=== PATIENT | male | born 1970 | race Hispanic/Latino ===

== ENCOUNTER 2017-09-24 14:55 | Inpatient (IN) | payer OTHER ==
[~2017-09-24] VITALS: Ht 175.3 cm; Wt 128.5 kg
[2017-09-24] MEDS ORDERED: ONDANSETRON HCL 4 MG/2 ML VIAL ONE (15:23)
[2017-09-24] MEDS ORDERED: MORPHINE SULFATE 4 MG/1ML SYG ONE (15:23)
[2017-09-24 15:30] LABS: APPEARANCE,URINE Clear (CLEAR); BILIRUBIN,URINE Negative (NEGATIVE); COLOR,URINE Yellow (YELLOW); GLUCOSE, URINE (UA) Negative (NEGATIVE); KETONES,URINE Negative (NEGATIVE); LEUKOCYTE ESTERASE ,URINE Negative (NEGATIVE); NITRATE,URINE Negative (NEGATIVE); OCCULT BLOOD,URINE Trace (NEGATIVE); PROTEIN,URINE Negative (NEGATIVE)
[2017-09-24 15:33] LABS: BASOPHILS % (AUTO) 0.3 % (0.0-5.0); EOSINOPHILS % (AUTO) 0.4 % (0.0-8.0); HEMATOCRIT 49.8 % (42-54); LYMPHOCYTES % (AUTO) 12.6 % (21.0-51.0); MEAN CORPUSCULAR HEMOGLOBIN 30.8 pg (27.0-33.0); MEAN CORPUSCULAR HGB CONC 34.7 g/dL (32.0-36.0); MEAN CORPUSCULAR VOLUME 88.9 fL (79-99); MONOCYTES % (AUTO) 6.5 % (3.0-13.0); NEUTROPHILS % (AUTO) 80.2 % (40.0-77.0); PLATELET COUNT (AUTO) 193 K/uL (130-400); RED CELL DISTRIBUTION WIDTH 13.3 % (11.0-15.5); WHITE BLOOD COUNT (AUTO) 14.2 K/uL (4.8-10.8)
[2017-09-24 15:44] LABS: CREATININE 1.1 mg/dL (0.5-1.5); POTASSIUM 3.5 mmol/L (3.5-5.1)
[2017-09-24 15:45] LABS: BACTERIA,URINE None Seen /HPF (None Seen); RBC,URINE 0-1 /HPF (0-1); WBC,URINE None Seen /HPF (0-1)
[2017-09-24 15:46] LABS: SQUAMOUS EPITHELIAL CELL,UR Rare /HPF (0-2)
[2017-09-24 15:48] LABS: ALBUMIN 4.2 g/dL (3.5-5.0); BILIRUBIN,TOTAL 0.8 mg/dL (0.2-1.0); TOTAL PROTEIN, SERUM 8.5 g/dL (6.0-8.3)
[2017-09-24] MEDS ORDERED: IOPAMIDOL-370 75 ML VIAL IV ONE (16:17)
[2017-09-24] MEDS ORDERED: ACETAMINOPHEN EXTRA STRENGTH 500 MG TABLET ONE (17:09)
[2017-09-24] MEDS ORDERED: LEVOFLOXACIN 750 MG/D5W 150 ML 150 ML ONE (17:10)
[2017-09-24] MEDS ORDERED: METRONIDAZOLE 500MG/100ML BAG 100 ML ONE (18:34)
[2017-09-24 19:40] VITALS: BP 136/85
[2017-09-24] MEDS ORDERED: ONDANSETRON HCL MDV 20ML 2 MG/ML VIAL IVP PRN (22:00)
[2017-09-24] MEDS ORDERED: MORPHINE SULFATE 4 MG/1ML SYG IVP PRN (22:00)
[2017-09-24 23:00] VITALS: BP 129/75
[2017-09-25] VITALS (7 sets, daily range): BP systolic 113–126; BP diastolic 63–78
[2017-09-25] MEDS ORDERED: KETOROLAC TROMETHAMINE 30MG/ML IV PRN
[2017-09-25] MEDS: LACTATED RINGERS 1000ML 1,000 ML IV SCH ×4 (00:03→20:43)
[2017-09-25] MEDS: METRONIDAZOLE 500MG/100ML BAG 100 ML IVPB SCH ×3 (02:15→18:00)
[2017-09-25 04:00] LABS: BASOPHILS % (AUTO) 0.3 % (0.0-5.0); EOSINOPHILS % (AUTO) 0.3 % (0.0-8.0); HEMATOCRIT 41.6 % (42-54); LYMPHOCYTES % (AUTO) 14.5 % (21.0-51.0); MEAN CORPUSCULAR HEMOGLOBIN 31.2 pg (27.0-33.0); MEAN CORPUSCULAR HGB CONC 35.3 g/dL (32.0-36.0); MEAN CORPUSCULAR VOLUME 88.2 fL (79-99); MONOCYTES % (AUTO) 7.7 % (3.0-13.0); NEUTROPHILS % (AUTO) 77.2 % (40.0-77.0); NUCLEATED RED BLOOD CELLS 0.1 % (0.0-0.19); PLATELET COUNT (AUTO) 182 K/uL (130-400); RED BLOOD CELL COUNT(AUTO) 4.71 MIL/uL (4.50-6.20); RED CELL DISTRIBUTION WIDTH 13.1 % (11.0-15.5); WHITE BLOOD COUNT (AUTO) 11.5 K/uL (4.8-10.8)
[2017-09-25 04:04] LABS: CREATININE 1.3 mg/dL (0.5-1.5); POTASSIUM 3.4 mmol/L (3.5-5.1)
[2017-09-25] MEDS: FAMOTIDINE/PF 20 MG/2 ML VIAL IV SCH ×2 (10:02→20:41)
[2017-09-25] MEDS ORDERED: POTASSIUM CHLORIDE 20 MEQ/100 ML BAG IV SCH (15:00)
[2017-09-25] MEDS ORDERED: POTASSIUM CHLORIDE 20MEQ/100ML 100 ML IV SCH (15:15)
[2017-09-25] MEDS ORDERED: LEVOFLOXACIN 500 MG/D5W 100 ML 100 ML IV SCH (17:00)
[2017-09-25] MEDS ORDERED: LIDOCAINE HCL-MPF 1% 2ML VIAL ONE (18:19)
[2017-09-26] MEDS: METRONIDAZOLE 500MG/100ML BAG 100 ML IVPB SCH ×2 (02:03→06:00)
[2017-09-26 04:00] VITALS: BP 100/66
[2017-09-26] MEDS: LACTATED RINGERS 1000ML 1,000 ML IV SCH ×3 (04:21→20:58)
[2017-09-26 07:56] VITALS: BP 109/65
[2017-09-26] MEDS: FAMOTIDINE/PF 20 MG/2 ML VIAL IV SCH ×2 (08:46→20:56)
[2017-09-26 11:49] VITALS: BP 111/70
[2017-09-26 12:10] LABS: HEMATOCRIT 42.9 % (42-54); MEAN CORPUSCULAR HEMOGLOBIN 30.8 pg (27.0-33.0); MEAN CORPUSCULAR HGB CONC 34.6 g/dL (32.0-36.0); PLATELET COUNT (AUTO) 172 K/uL (130-400); RED BLOOD CELL COUNT(AUTO) 4.83 MIL/uL (4.50-6.20); RED CELL DISTRIBUTION WIDTH 13.2 % (11.0-15.5); WHITE BLOOD COUNT (AUTO) 6.5 K/uL (4.8-10.8)
[2017-09-26 12:19] LABS: CREATININE 1.2 mg/dL (0.5-1.5); POTASSIUM 3.8 mmol/L (3.5-5.1)
[2017-09-26 16:00] VITALS: BP 127/76
[2017-09-26] MEDS ORDERED: LEVOFLOXACIN 500 MG/D5W 100 ML 100 ML IV SCH (17:30)
[2017-09-26 20:00] VITALS: BP 114/67
[2017-09-26] MEDS: METRONIDAZOLE 500 MG TABLET PO SCH (20:56)
[2017-09-27] VITALS: BP 114/68
[2017-09-27 04:00] VITALS: BP 106/70
[2017-09-27] MEDS: LACTATED RINGERS 1000ML 1,000 ML IV SCH (06:30)
[2017-09-27 08:00] VITALS: BP 128/94
[2017-09-27] MEDS ORDERED: LEVOFLOXACIN 500 MG TABLET PO SCH (09:00)
[2017-09-27] MEDS: METRONIDAZOLE 500 MG TABLET PO SCH (09:04)
[2017-09-27] MEDS: FAMOTIDINE/PF 20 MG/2 ML VIAL IV SCH (09:05)
[2017-09-27] MEDS ORDERED: METR500T PO (10:06)
[2017-09-27] MEDS ORDERED: LEVO500T2 PO (10:06)
== END 2017-09-27 11:40 | disposition home or self-care (01) | DRG 392 ==
LOC: EDH 14:55 → OBSVTOIN 17:00 → EDHIP 17:00 → 3BH 19:28
PROVIDERS: ADMIT Family Medicine; ATTEND Family Medicine
DX: K57.20 Diverticulitis of large intestine with perforation and abscess without bleeding (principal); K76.0 Fatty (change of) liver, not elsewhere classified; E66.01 Morbid (severe) obesity due to excess calories; Z68.41 Body mass index [BMI] 40.0-44.9, adult; E87.6 Hypokalemia
CPT/HCPCS: 36415; 74177; 80048; 80053; 81001; 83690; 85025; 85027; J1956; J2270; J2405; J3480; J3490; J7120; Q9967

== ENCOUNTER 2017-10-11 23:19 | Emergency (ER) | payer OTHER ==
[~2017-10-11 23:19] MED LIST: LEVO500T2 PO; METR500T PO
[2017-10-12] MEDS ORDERED: ACETAMINOPHEN EXTRA STRENGTH 500 MG TABLET ONE (00:33)
[2017-10-12 01:15] LABS: BASOPHILS % (AUTO) 0.4 % (0.0-5.0); RED BLOOD CELL COUNT(AUTO) 4.81 MIL/uL (4.50-6.20)
[2017-10-12 01:25] LABS: CREATININE 1.1 mg/dL (0.5-1.5); POTASSIUM 3.9 mmol/L (3.5-5.1)
[2017-10-12 01:26] LABS: EOSINOPHILS % (AUTO) 2.3 % (0.0-8.0); HEMATOCRIT 42.7 % (42-54); MEAN CORPUSCULAR HEMOGLOBIN 30.8 pg (27.0-33.0); MEAN CORPUSCULAR HGB CONC 34.8 g/dL (32.0-36.0); MEAN CORPUSCULAR VOLUME 88.7 fL (79-99); MONOCYTES % (AUTO) 6.4 % (3.0-13.0); NEUTROPHILS % (AUTO) 71.9 % (40.0-77.0); RED CELL DISTRIBUTION WIDTH 13.1 % (11.0-15.5); WHITE BLOOD COUNT (AUTO) 10.7 K/uL (4.8-10.8)
[2017-10-12 01:30] LABS: BILIRUBIN,TOTAL 0.4 mg/dL (0.2-1.0); TOTAL PROTEIN, SERUM 7.7 g/dL (6.0-8.3)
[2017-10-12 01:58] LABS: PLATELET COUNT (AUTO) 171 K/uL (130-400)
[2017-10-12 02:19] LABS: ERYTHROCYTE SEDIMENTATION RATE 9 MM/HR (0-15)
[2017-10-12] MEDS ORDERED: CLINDAMYCIN 600 MG/D5% WATER 50 ML IV ONE (02:44)
== END 2017-10-12 03:34 | disposition home or self-care (01) ==
LOC: EDH 23:19
DX: M79.671 Pain in right foot (principal); M79.89 Other specified soft tissue disorders
CPT/HCPCS: 36415 ×2; 73630; 80053; 84550; 85025; 85651; 87040 ×2; 96365; 99285; J3490

== ENCOUNTER 2017-10-24 20:58 | Emergency (ER) | payer OTHER ==
[2017-10-24] MEDS ORDERED: DEXAMETHASONE SOD PHOSPHATE 10MG/ML 1ML VIAL ONE (21:19)
[2017-10-24] MEDS ORDERED: ACETAMINOPHEN-CODEINE ELIXIR 5 ML UDCUP ONE (21:20)
== END 2017-10-24 22:02 | disposition home or self-care (01) ==
LOC: EDH 20:58
DX: M25.572 Pain in left ankle and joints of left foot (principal)
CPT/HCPCS: 73610; 73630; 96372; 99284; J1100

== ENCOUNTER 2022-01-18 14:59 | Emergency (ER) | payer OTHER ==
[~2022-01-18] VITALS: Ht 175.3 cm; Wt 127.0 kg
[2022-01-18] MEDS ORDERED: 0.9%NACL 1000ML 1,000 ML IV SCH (15:30)
[2022-01-18 15:31] LABS: APPEARANCE,URINE CLEAR (CLEAR); BASOPHILS % (AUTO) 0.2 % (0.0-5.0); BILIRUBIN,URINE NEGATIVE (NEGATIVE); COLOR,URINE YELLOW (YELLOW); EOSINOPHILS % (AUTO) 0.6 % (0.0-8.0); GLUCOSE, URINE (UA) NEGATIVE (NEGATIVE); HEMATOCRIT 46.5 % (42-54); KETONES,URINE 15 mg/dL (NEGATIVE); LEUKOCYTE ESTERASE ,URINE NEGATIVE (NEGATIVE); LYMPHOCYTES % (AUTO) 18.7 % (21.0-51.0); MEAN CORPUSCULAR HEMOGLOBIN 30.7 pg (27.0-33.0); MEAN CORPUSCULAR HGB CONC 36.1 g/dL (32.0-36.0); MONOCYTES % (AUTO) 7.7 % (3.0-13.0); NEUTROPHILS % (AUTO) 72.6 % (40.0-77.0); NITRATE,URINE NEGATIVE (NEGATIVE); OCCULT BLOOD,URINE NEGATIVE (NEGATIVE); PLATELET COUNT (AUTO) 206 K/uL (130-400); PROTEIN,URINE NEGATIVE (NEGATIVE); RED BLOOD CELL COUNT(AUTO) 5.47 MIL/uL (4.50-6.20); RED CELL DISTRIBUTION WIDTH 12.3 % (11.0-15.5); UROBILINOGEN,URINE 0.2 mg/dL (0.2-1.0); WHITE BLOOD COUNT (AUTO) 12.1 K/uL (4.8-10.8)
[2022-01-18 15:42] LABS: CREATININE 1.1 mg/dL (0.5-1.5); POTASSIUM 3.7 mmol/L (3.5-5.1)
[2022-01-18 15:48] LABS: ALBUMIN 4.2 g/dL (3.5-5.0); TOTAL PROTEIN, SERUM 8.2 g/dL (6.0-8.3)
[2022-01-18] MEDS ORDERED: IOHEXOL 350 MG/ML 100ML INFUS..BTL IV ONE (16:37)
[2022-01-18] MEDS ORDERED: ZOSYN 3.375GM+NS 50ML 50 ML ONE (18:10)
[2022-01-18] MEDS ORDERED: ZOSYN 3.375GM +NS 50ML IV STA (18:10)
[2022-01-18] MEDS ORDERED: METR375C2 PO (18:21)
[2022-01-18] MEDS ORDERED: CIPR-279 PO (18:21)
[2022-01-18 18:41] VITALS: BP 140/89
== END 2022-01-18 18:53 | disposition home or self-care (01) ==
LOC: EDH 14:59
DX: K57.32 Diverticulitis of large intestine without perforation or abscess without bleeding (principal); I10 Essential (primary) hypertension
CPT/HCPCS: 99285; 74177; 96365; 96361; 80053; 83690; 85025; 81003; 36415; J7030; J2543; Q9967

== ENCOUNTER → 2024-03-28 | Outpatient (CLI) | payer OTHER ==
[~2024-03-28] MED LIST changes: +AMLO-258 PO; +CETI10TA57 PO; -LEVO500T2 PO; -METR500T PO; +NAPR-1023 PO; +TOPI25TA48 PO
[2024-03-28 14:09] LABS: BODY FLUID RBC 2493 /cu. mm.; BODY FLUID WBC 1798 /cu. mm.
[2024-03-28 14:17] LABS: APPEARANCE BODY FLUID CLOUDY (CLEAR); COLOR,BODY FLUID LT YELLOW (LT YELLOW); SPECIMENTYPE,BODY FLUID SYNOVIAL
[2024-03-28 14:21] LABS: TOTAL VOLUME,BODY FLUID 40 mL
[2024-03-28 17:11] LABS: CRYSTALS, SYNOVIAL FLUID SEE SEPARATE REPORT
[2024-03-28 22:25] LABS: BF LYMPHOCYTE 5 %; BF MACROPHAGE 5; BF TOTAL CELLS COUNTED 100
== END | disposition home or self-care (01) ==
LOC: LAB 11:14
PROVIDERS: ATTEND Orthopaedic Surgery
DX: M25.461 Effusion, right knee (principal)
CPT/HCPCS: 87071; 87076; 87205; 89051; 89060